=== PATIENT | female | born 1955 | race Caucasian/White ===

== ENCOUNTER 2019-11-16 17:02 | Emergency (ER) | payer OTHER ==
[~2019-11-16] VITALS: Ht 154.9 cm; Wt 56.7 kg
[2019-11-16] MEDS ORDERED: AMLODIPINE (17:11)
[2019-11-16] MEDS ORDERED: LEVO-T100 MCG (17:12)
[2019-11-16] MEDS ORDERED: AMLODIPINE PO (17:12)
== END 2019-11-16 18:54 | disposition home or self-care (01) ==
LOC: ER 17:02
DX: B34.9 Viral infection, unspecified (principal)

== ENCOUNTER 2019-11-20 11:45 | Inpatient (IN) | payer OTHER ==
[~2019-11-20] VITALS: Ht 157.5 cm; Wt 59.0 kg
[~2019-11-20 11:45] MED LIST: AMLODIPINE; AMLODIPINE PO; LEVO-T100 MCG
== END 2019-11-23 16:11 | disposition home or self-care (01) | DRG 866 ==
LOC: ER 11:45 → SURH 22:11 → SEC-K 22:11 → MEDI 11-21 02:07 → SEC-K 11-21 02:46 → SURH 11-21 15:31
PROVIDERS: ADMIT Internal Medicine; ATTEND Internal Medicine
DX: A90 Dengue fever [classical dengue] (principal); E03.8 Other specified hypothyroidism; I10 Essential (primary) hypertension; E86.0 Dehydration; D69.59 Other secondary thrombocytopenia